=== PATIENT | female | born 1990 | race African-American/Black ===

== ENCOUNTER 2022-12-08 14:36 | Inpatient (IN) | payer OTHER ==
[2022-12-08 15:48] VITALS: BMI 25.4
[2022-12-08] MEDS ORDERED: MAGNESIUM HYDROX 2400MG/30ML ORAL SUSPENSION 30 ML CUP PO PRN (15:56)
[2022-12-08] MEDS ORDERED: ONDANSETRON *ODT* 4 MG TABLET SL PRN (15:56)
[2022-12-08] MEDS ORDERED: NALOXONE HCL (KLOXXADO) 8 MG SPRAY NS PRN (15:56)
[2022-12-08] MEDS ORDERED: IBUPROFEN 600 MG TABLET (FP) PO PRN (15:56)
[2022-12-08] MEDS ORDERED: POLYETHYLENE GLYCOL (HEALTHYLAX) 3350 17 GM PACKET PO PRN (15:56)
[2022-12-08] MEDS ORDERED: BISMUTH SUBSALICYLATE 524 MG/30 ML PO PRN (15:56)
[2022-12-08] MEDS ORDERED: MAG HYDROX/AL HYDROX/SIMETH 30 ML UNIT-DOSE CUP PO PRN (15:56)
[2022-12-08] MEDS ORDERED: DICYCLOMINE HCL 10 MG CAPSULE PO PRN (15:56)
[2022-12-08] MEDS ORDERED: BENZOCAINE/MENTHOL (CHLORASEPTIC ) LOZENGE MM PRN (15:56)
[2022-12-08] MEDS ORDERED: METHOCARBAMOL 500 MG TABLET PO PRN (15:56)
[2022-12-08] MEDS ORDERED: ACETAMINOPHEN 325 MG TABLET (FP) PO PRN ×2 (15:56)
[2022-12-08] MEDS ORDERED: IBUPROFEN 400 MG TABLET (FP) PO PRN (15:56)
[2022-12-08] MEDS ORDERED: LOPERAMIDE HCL 2 MG CAPSULE PO PRN (15:56)
[2022-12-08] MEDS: NICOTINE 10 MG CARTRIDGE (INHALER) IH PRN (18:18)
[2022-12-08] MEDS: PRENATAL VITAMINS W/ FOLIC ACID TABLET (FP) PO SCH (18:19)
[2022-12-08] MEDS: NICOTINE 7 MG/24 HOURS TOPICAL PATCH TD SCH (18:20)
[2022-12-08] MEDS ORDERED: MELATONIN 5 MG TABLETS PO SCH (22:00)
[2022-12-08] MEDS ORDERED: THIAMINE HCL 100 MG TABLET (FP) PO SCH (22:00)
[2022-12-08] MEDS: PHENYTOIN NA EXTENDED 100 MG CAPSULE (FP) PO SCH (22:31)
[2022-12-08] MEDS ORDERED: cloNIDine HCL 0.1 MG TABLET PO ONE (22:36)
[2022-12-09] MEDS: PHENYTOIN NA EXTENDED 100 MG CAPSULE (FP) PO SCH (05:59)
[2022-12-09] MEDS: hydrOXYzine PAMOATE 25 MG CAPSULE (FP) PO PRN ×2 (10:23→17:19)
[2022-12-09] MEDS: NICOTINE 7 MG/24 HOURS TOPICAL PATCH TD SCH (10:24)
[2022-12-09] MEDS: PRENATAL VITAMINS W/ FOLIC ACID TABLET (FP) PO SCH (10:24)
[2022-12-09 11:31] LABS: HEMATOCRIT 40.7 % (32.4-45.2); HEMOGLOBIN 13.4 GM/dL (10.7-15.3); MCH 28.9 pg (25.7-33.7); MCHC 32.9 g/dl (32.0-36.0); MEAN CELL VOLUME 87.9 fl (80-96); MEAN PLT VOLUME 8.6 fl (7.5-11.1); PLATELET COUNT 269 10^3/uL (134-434); RBC 4.63 M/mm3 (3.60-5.2); RDW 15.1 % (11.6-15.6); WHITE BLOOD COUNT 8.8 K/mm3 (4.0-10.0)
[2022-12-09 11:55] LABS: ALBUMIN 3.7 g/dl (3.4-5.0); BLOOD UREA NITROGEN 11.7 mg/dL (7-18); CREATININE 0.8 mg/dL (0.55-1.3)
[2022-12-09 11:57] LABS: BILIRUBIN,TOTAL 0.6 mg/dL (0.2-1); CALCIUM 9.7 mg/dL (8.5-10.1); TOT PROT 7.6 g/dl (6.4-8.2)
[2022-12-09] MEDS: NICOTINE 10 MG CARTRIDGE (INHALER) IH PRN ×3 (12:34→20:47)
[2022-12-09 17:19] VITALS: BP 138/95; PULSE 87; RESP 18; TEMP 97.5
== END 2022-12-09 20:52 | disposition other institution (70) | DRG 775 ==
LOC: YASAS 14:36 → UNDOADMIN 17:23 → Y3N 17:23 → UNDODISIN 12-09 20:52
PROVIDERS: ADMIT Allergy & Immunology; ATTEND Surgery
PROC: HZ2ZZZZ Detoxification Services for Substance Abuse Treatment (ICD-10-PCS; principal; 2022-12-08)
DX: F10.230 Alcohol dependence with withdrawal, uncomplicated (principal); F12.20 Cannabis dependence, uncomplicated; F17.210 Nicotine dependence, cigarettes, uncomplicated; F41.9 Anxiety disorder, unspecified; Z86.79 Personal history of other diseases of the circulatory system
CPT/HCPCS: 36415; 80053; 80185; 85027; 86780; 93005; 93010; C9803-CS; U0003; U0005

== ENCOUNTER 2022-12-09 16:12 | Inpatient (IN) | payer OTHER ==
[2022-12-09] MEDS ORDERED: MAGNESIUM HYDROX 2400MG/30ML ORAL SUSPENSION 30 ML CUP PO PRN (22:41)
[2022-12-09] MEDS ORDERED: LOPERAMIDE HCL 2 MG CAPSULE PO PRN (22:41)
[2022-12-09] MEDS ORDERED: POLYETHYLENE GLYCOL (HEALTHYLAX) 3350 17 GM PACKET PO PRN (22:41)
[2022-12-09] MEDS ORDERED: guaiFENesin 200 MG/10 ML 10 ML UNIT-DOSE CUPS PO PRN (22:41)
[2022-12-09] MEDS ORDERED: MAG HYDROX/AL HYDROX/SIMETH 30 ML UNIT-DOSE CUP PO PRN (22:41)
[2022-12-09] MEDS ORDERED: P-EPHED 60MG/TRIPROLIDI 2.5MG TABLET PO PRN (22:41)
[2022-12-10] MEDS: PRENATAL VITAMINS W/ FOLIC ACID TABLET (FP) PO SCH (10:14)
[2022-12-10] MEDS ORDERED: cloNIDine HCL 0.1 MG TABLET PO PRN (15:05)
[2022-12-10] MEDS: THIAMINE HCL 100 MG TABLET (FP) PO SCH (21:55)
[2022-12-10] MEDS: NICOTINE 10 MG CARTRIDGE (INHALER) IH PRN (21:56)
[2022-12-11] MEDS: PRENATAL VITAMINS W/ FOLIC ACID TABLET (FP) PO SCH (09:52)
[2022-12-11] MEDS: NICOTINE 10 MG CARTRIDGE (INHALER) IH PRN ×2 (09:52→16:24)
[2022-12-11] MEDS: THIAMINE HCL 100 MG TABLET (FP) PO SCH (21:39)
[2022-12-11] MEDS: MELATONIN 5 MG TABLETS PO PRN (23:12)
[2022-12-12] MEDS: PRENATAL VITAMINS W/ FOLIC ACID TABLET (FP) PO SCH (10:07)
[2022-12-12] MEDS: NICOTINE 10 MG CARTRIDGE (INHALER) IH PRN ×3 (10:08→23:27)
[2022-12-12] MEDS: THIAMINE HCL 100 MG TABLET (FP) PO SCH (21:49)
[2022-12-12] MEDS: ACETAMINOPHEN 325 MG TABLET (FP) PO PRN (21:49)
[2022-12-12] MEDS: MELATONIN 5 MG TABLETS PO PRN (23:27)
[2022-12-13] MEDS: PRENATAL VITAMINS W/ FOLIC ACID TABLET (FP) PO SCH (10:14)
[2022-12-13] MEDS: NICOTINE 10 MG CARTRIDGE (INHALER) IH PRN ×2 (10:15→22:06)
[2022-12-13] MEDS: THIAMINE HCL 100 MG TABLET (FP) PO SCH (22:06)
[2022-12-14] MEDS: PRENATAL VITAMINS W/ FOLIC ACID TABLET (FP) PO SCH (09:32)
[2022-12-14] MEDS: NICOTINE 10 MG CARTRIDGE (INHALER) IH PRN ×3 (09:34→23:10)
[2022-12-14] MEDS: THIAMINE HCL 100 MG TABLET (FP) PO SCH (21:36)
[2022-12-14] MEDS: MELATONIN 5 MG TABLETS PO PRN (23:11)
[2022-12-15] MEDS: PRENATAL VITAMINS W/ FOLIC ACID TABLET (FP) PO SCH (10:00)
[2022-12-15] MEDS: NICOTINE 10 MG CARTRIDGE (INHALER) IH PRN ×2 (17:32→21:38)
[2022-12-15] MEDS: THIAMINE HCL 100 MG TABLET (FP) PO SCH (21:38)
[2022-12-15] MEDS: MELATONIN 5 MG TABLETS PO PRN (23:01)
[2022-12-16] MEDS: NICOTINE 10 MG CARTRIDGE (INHALER) IH PRN ×2 (10:06→16:51)
[2022-12-16] MEDS: PRENATAL VITAMINS W/ FOLIC ACID TABLET (FP) PO SCH (10:06)
[2022-12-16] MEDS: THIAMINE HCL 100 MG TABLET (FP) PO SCH (21:31)
[2022-12-17] MEDS: PRENATAL VITAMINS W/ FOLIC ACID TABLET (FP) PO SCH (09:08)
[2022-12-17] MEDS: NICOTINE 10 MG CARTRIDGE (INHALER) IH PRN ×3 (09:08→21:42)
[2022-12-17] MEDS: THIAMINE HCL 100 MG TABLET (FP) PO SCH (21:42)
[2022-12-17] MEDS: MELATONIN 5 MG TABLETS PO PRN (21:42)
[2022-12-18] MEDS: PRENATAL VITAMINS W/ FOLIC ACID TABLET (FP) PO SCH (09:41)
[2022-12-18] MEDS: NICOTINE 10 MG CARTRIDGE (INHALER) IH PRN ×2 (09:42→18:46)
[2022-12-18] MEDS: THIAMINE HCL 100 MG TABLET (FP) PO SCH (21:46)
[2022-12-19] MEDS: PRENATAL VITAMINS W/ FOLIC ACID TABLET (FP) PO SCH (09:12)
[2022-12-19] MEDS: NICOTINE 10 MG CARTRIDGE (INHALER) IH PRN ×2 (09:12→21:43)
[2022-12-19] MEDS: THIAMINE HCL 100 MG TABLET (FP) PO SCH (21:43)
[2022-12-20] MEDS: COLLOIDAL OATMEAL 1 BAR EACH TP PRN (07:27)
[2022-12-20] MEDS: IBUPROFEN 400 MG TABLET (FP) PO PRN (07:28)
[2022-12-20] MEDS: PRENATAL VITAMINS W/ FOLIC ACID TABLET (FP) PO SCH (10:25)
[2022-12-20] MEDS: NICOTINE 10 MG CARTRIDGE (INHALER) IH PRN ×2 (18:13→21:32)
[2022-12-20] MEDS: THIAMINE HCL 100 MG TABLET (FP) PO SCH (21:32)
[2022-12-20] MEDS: MELATONIN 5 MG TABLETS PO PRN (21:32)
[2022-12-21] MEDS: PRENATAL VITAMINS W/ FOLIC ACID TABLET (FP) PO SCH (09:58)
[2022-12-21] MEDS: NICOTINE 10 MG CARTRIDGE (INHALER) IH PRN ×2 (09:59→19:52)
[2022-12-21 17:47] LABS: PH,URINE 6.5 (5.0-8.0); URINE APPEARANCE TURBID; URINE BILIRUBIN NEGATIVE (NEGATIVE); URINE COLOR YELLOW; URINE GLUCOSE (UA) NEGATIVE (NEGATIVE); URINE KETONE NEGATIVE (NEGATIVE); URINE LEUK ESTERASE NEGATIVE (NEGATIVE); URINE NITRITE NEGATIVE (NEGATIVE); URINE PROTEIN NEGATIVE (NEGATIVE); URINE UROBILINOGEN 0.2 mg/dL (0.2-1.0)
[2022-12-21] MEDS: THIAMINE HCL 100 MG TABLET (FP) PO SCH (21:40)
[2022-12-22] MEDS: PRENATAL VITAMINS W/ FOLIC ACID TABLET (FP) PO SCH (09:37)
[2022-12-22] MEDS: NICOTINE 10 MG CARTRIDGE (INHALER) IH PRN ×2 (09:37→16:25)
[2022-12-22] MEDS: ACETAMINOPHEN 325 MG TABLET (FP) PO PRN (21:29)
[2022-12-22] MEDS: THIAMINE HCL 100 MG TABLET (FP) PO SCH (21:29)
[2022-12-23] MEDS: PRENATAL VITAMINS W/ FOLIC ACID TABLET (FP) PO SCH (09:56)
[2022-12-23] MEDS: ACETAMINOPHEN 325 MG TABLET (FP) PO PRN (09:57)
[2022-12-23] MEDS: NICOTINE 10 MG CARTRIDGE (INHALER) IH PRN (09:58)
[2022-12-23] MEDS: IBUPROFEN 400 MG TABLET (FP) PO PRN (16:52)
[2022-12-23] MEDS: THIAMINE HCL 100 MG TABLET (FP) PO SCH (21:04)
[2022-12-24] MEDS: BENZOCAINE/MENTHOL (CHLORASEPTIC ) LOZENGE MM PRN ×2 (06:31→21:47)
[2022-12-24] MEDS: IBUPROFEN 400 MG TABLET (FP) PO PRN (10:29)
[2022-12-24] MEDS: PRENATAL VITAMINS W/ FOLIC ACID TABLET (FP) PO SCH (10:29)
[2022-12-24] MEDS: THIAMINE HCL 100 MG TABLET (FP) PO SCH (21:45)
[2022-12-24] MEDS: NICOTINE 10 MG CARTRIDGE (INHALER) IH PRN (21:46)
[2022-12-25] MEDS: NICOTINE 10 MG CARTRIDGE (INHALER) IH PRN ×2 (08:02→13:07)
[2022-12-25] MEDS: PRENATAL VITAMINS W/ FOLIC ACID TABLET (FP) PO SCH (10:08)
[2022-12-25] MEDS: BENZOCAINE/MENTHOL (CHLORASEPTIC ) LOZENGE MM PRN (15:43)
[2022-12-25] MEDS: THIAMINE HCL 100 MG TABLET (FP) PO SCH (21:14)
[2022-12-26] MEDS: BENZOCAINE/MENTHOL (CHLORASEPTIC ) LOZENGE MM PRN (07:04)
[2022-12-26] MEDS: COLLOIDAL OATMEAL 1 BAR EACH TP PRN (07:04)
[2022-12-26] MEDS: NICOTINE 10 MG CARTRIDGE (INHALER) IH PRN ×2 (09:34→19:02)
[2022-12-26] MEDS: PRENATAL VITAMINS W/ FOLIC ACID TABLET (FP) PO SCH (09:36)
[2022-12-26] MEDS: THIAMINE HCL 100 MG TABLET (FP) PO SCH (21:31)
[2022-12-27] MEDS: PRENATAL VITAMINS W/ FOLIC ACID TABLET (FP) PO SCH (09:31)
[2022-12-27] MEDS: NICOTINE 10 MG CARTRIDGE (INHALER) IH PRN ×2 (14:46→21:43)
[2022-12-27] MEDS: THIAMINE HCL 100 MG TABLET (FP) PO SCH (21:42)
[2022-12-28] MEDS: BENZOCAINE/MENTHOL (CHLORASEPTIC ) LOZENGE MM PRN (06:49)
[2022-12-28] MEDS: BENZOCAINE 20 % GEL TUBE MM PRN (06:50)
[2022-12-28] MEDS: PRENATAL VITAMINS W/ FOLIC ACID TABLET (FP) PO SCH (10:09)
[2022-12-28] MEDS: NICOTINE 10 MG CARTRIDGE (INHALER) IH PRN ×2 (10:09→21:52)
[2022-12-28] MEDS: THIAMINE HCL 100 MG TABLET (FP) PO SCH (21:52)
[2022-12-29] MEDS: PRENATAL VITAMINS W/ FOLIC ACID TABLET (FP) PO SCH (10:02)
[2022-12-29] MEDS: NICOTINE 10 MG CARTRIDGE (INHALER) IH PRN ×3 (14:58→22:05)
[2022-12-29] MEDS: THIAMINE HCL 100 MG TABLET (FP) PO SCH (22:04)
[2022-12-30] MEDS: NICOTINE 10 MG CARTRIDGE (INHALER) IH PRN ×2 (09:44→18:03)
[2022-12-30] MEDS: PRENATAL VITAMINS W/ FOLIC ACID TABLET (FP) PO SCH (09:44)
[2022-12-30] MEDS: THIAMINE HCL 100 MG TABLET (FP) PO SCH (22:00)
[2022-12-31] MEDS: PRENATAL VITAMINS W/ FOLIC ACID TABLET (FP) PO SCH (10:18)
[2022-12-31] MEDS: NICOTINE 10 MG CARTRIDGE (INHALER) IH PRN ×2 (10:19→19:20)
[2022-12-31] MEDS: THIAMINE HCL 100 MG TABLET (FP) PO SCH (21:34)
[2023-01-01] MEDS: COLLOIDAL OATMEAL 1 BAR EACH TP PRN (06:17)
[2023-01-01] MEDS: NICOTINE 10 MG CARTRIDGE (INHALER) IH PRN ×3 (06:17→21:06)
[2023-01-01] MEDS: PRENATAL VITAMINS W/ FOLIC ACID TABLET (FP) PO SCH (09:44)
[2023-01-01] MEDS: THIAMINE HCL 100 MG TABLET (FP) PO SCH (21:06)
[2023-01-02] MEDS: NICOTINE 10 MG CARTRIDGE (INHALER) IH PRN ×3 (08:11→21:59)
[2023-01-02] MEDS: PRENATAL VITAMINS W/ FOLIC ACID TABLET (FP) PO SCH (10:28)
[2023-01-02 16:48] VITALS: RESP 18
[2023-01-02] MEDS: THIAMINE HCL 100 MG TABLET (FP) PO SCH (21:08)
[2023-01-03] MEDS: BENZOCAINE 20 % GEL TUBE MM PRN (06:27)
[2023-01-03] MEDS: IBUPROFEN 400 MG TABLET (FP) PO PRN ×2 (08:06→15:49)
[2023-01-03] MEDS: PRENATAL VITAMINS W/ FOLIC ACID TABLET (FP) PO SCH (10:25)
[2023-01-03] MEDS: NICOTINE 10 MG CARTRIDGE (INHALER) IH PRN ×2 (10:26→21:44)
[2023-01-03] MEDS: THIAMINE HCL 100 MG TABLET (FP) PO SCH (21:44)
[2023-01-04] MEDS: IBUPROFEN 400 MG TABLET (FP) PO PRN ×2 (06:12→17:04)
[2023-01-04] MEDS: PRENATAL VITAMINS W/ FOLIC ACID TABLET (FP) PO SCH (10:01)
[2023-01-04] MEDS: NICOTINE 10 MG CARTRIDGE (INHALER) IH PRN (10:57)
[2023-01-04] MEDS: THIAMINE HCL 100 MG TABLET (FP) PO SCH (21:45)
[2023-01-05 07:14] VITALS: BP 114/80; PULSE 93; TEMP 98
[2023-01-05] MEDS: PRENATAL VITAMINS W/ FOLIC ACID TABLET (FP) PO SCH (09:55)
[2023-01-05] MEDS: IBUPROFEN 400 MG TABLET (FP) PO PRN (09:55)
[2023-01-05] MEDS: NICOTINE 10 MG CARTRIDGE (INHALER) IH PRN (09:56)
[2023-01-05] MEDS: THIAMINE HCL 100 MG TABLET (FP) PO SCH (21:44)
== END 2023-01-05 19:25 | disposition home or self-care (01) | DRG 772 ==
LOC: YASAS 16:12 → Y5N 21:30
PROVIDERS: ADMIT Allergy & Immunology; ATTEND Allergy & Immunology
PROC: HZ42ZZZ Group Counseling for Substance Abuse Treatment, Cognitive-Behavioral (ICD-10-PCS; principal; 2022-12-09)
DX: F10.20 Alcohol dependence, uncomplicated (principal); F12.20 Cannabis dependence, uncomplicated; F17.210 Nicotine dependence, cigarettes, uncomplicated; F41.8 Other specified anxiety disorders; I10 Essential (primary) hypertension; L85.3 Xerosis cutis; N94.6 Dysmenorrhea, unspecified
CPT/HCPCS: 36415; 81003; 87491; 87591; 87661